=== PATIENT | female | born 1955 | race Caucasian/White ===

== ENCOUNTER 2018-08-17 19:59 | Emergency (ER) | payer OTHER, MEDICAID, SELFPAY ==
[2018-08-17 20:06] VITALS: BP 152/81; PULSE 93; RESP 18; TEMP 36.8; O2SAT 94; BMI 27.8
--- NOTE | 2018-08-17 20:25 | ED.EXTPRO ---
HPI - Extremity Problem General Chief complaint: Extremity Problem,Nontraumatic Stated complaint: LEFT FOOT BIG TOE PAIN Time Seen by Provider: 08/17/18 20:19 Source: patient Mode of arrival: ambulatory Limitations: no limitations History of Present Illness HPI Narrative: Patient is a 63-year-old female who presents with left big toe pain. She says started a week ago she has been soaking in Epsom salt. She feels like her toenail is ingrown. It has gotten more red. And painful. No fever. No numbness or tingling. No gross pus. She is not diabetic. She did not stub it or injure it. MD Complaint: extremity swelling Related Data Home Medications Medication Instructions Recorded Confirmed albuterol sulfate [Proventil HFA] 1 puff INH #0 02/07/16 Previous Rx's Medication Instructions Recorded metoprolol tartrate [Lopressor] 50 mg PO BID 30 Days #0 tab 02/07/16 pantoprazole [Protonix] 40 mg PO Q12H 7 Days #0 tab 02/07/16 sulfamethoxazole-trimethoprim 1 tab PO BID #14 tab 08/17/18 [Bactrim DS] Allergies Allergy/AdvReac Type Severity Reaction Status Date / Time penicillin G [PENICILLIN G] Allergy Unknown Unverified 06/11/17 12:40 Review of Systems Review of Systems ROS Unobtainable: All systems reviewed & are unremarkable except as noted in HPI and below Constitutional Denies chills, Denies fever(s), Denies lethargy and Denies weakness Eyes Denies change in vision, Denies eye discharge, Denies irritation and Denies loss of vision ENT Ears, Nose, Mouth, and Throat: Denies change in voice, Denies neck pain and Denies sore throat Cardiovascular Denies chest pain, Denies irregular heart rhythm, Denies lightheadedness, Denies palpitations, Denies dyspnea, Denies dyspnea on exertion and Denies orthopnea Respiratory Denies cough, Denies dyspnea, Denies dyspnea on exertion and Denies wheezing Gastrointestinal Gastrointestinal: Denies abdominal pain, Denies change in bowel habits, Denies diarrhea, Denies nausea and Denies vomiting Musculoskeletal Reports as per HPI and Denies neck pain Integumentary/Breasts Reports as per HPI Neurologic Denies loss of vision and Denies weakness Endocrine Denies palpitations Allergic/Immunologic Denies wheezing [facility] Medical History Hypertension (Acute) Social History Smoking Status: Current every day smoker Social History Smoking Status: Current every day smoker Exam Initial Vital Signs Initial Vital Signs: Vital Signs Temperature 98.2 F 08/17/18 20:06 Pulse Rate 93 H 08/17/18 20:06 Respiratory Rate 18 08/17/18 20:06 Blood Pressure 152/81 H 08/17/18 20:06 Pulse Oximetry 94 08/17/18 20:06 GENERAL: Well-appearing, well-nourished and in no acute distress. CARDIOVASCULAR: peripheral pulses in tact, cap refill <2 sec RESPIRATORY: No respiratory distress, speaks in full sentences without difficulty EXTREMITIES: Normal range of motion, no clubbing or edema. Neurovascularly intact NEUROLOGICAL: Cranial nerves II through XII grossly intact. Normal gait and speech. SKIN: Left big toe slightly erythematous no gross pus no streaking Procedures Orthopedic Splinting/Casting Injury #1: Side: left Lower Extremity Injury Location: toe Lower Extremity Immobilizer: post-op shoe Post splinting neuro exam: intact Post splinting vascular exam: intact Placed by: Nursing Course Orders Ordered: Discontinued Medications Trimethoprim/Sulfamethoxazole (Bactrim Ds Prepack) 1 bottle [facility] Stop: 08/17/18 20:25 Last Admin: 08/17/18 20:46 Dose: 1 bottle Vital Signs - 8 hr 08/17/18 20:06 08/17/18 21:06 Temperature 98.2 F Pulse Rate 93 H 54 L Respiratory Rate 18 Blood Pressure 152/81 H 139/73 Pulse Oximetry 94 95 Discharge Plan Departure Patient Disposition: Home Clinical Impression: Cellulitis of great toe Qualifiers: Laterality: left Qualified Code(s): L03.032 - Cellulitis of left toe Discharge Date/Time: 08/17/18 21:07 Interventions: ED Discharge Assessment Last Done: 08/17/18 21:06 Instructions: DI for Cellulitis -- Adult Activity Restrictions/Additional Instructions: *You have been diagnosed with left big toe cellulitis *What to do: Soak in warm soapy water 1-2 times daily. *Continue to take medications as directed Bactrim 1 tablet twice daily for 7 days *Follow up with your primary care provider in 2-3 days follow-up with Podiatry as arranged next week *Return to ER if you should have increasing redness swelling pain fever weakness numbness or any new, worsening or concerning symptoms Prescriptions: New sulfamethoxazole-trimethoprim [Bactrim DS] 800-160 mg tablet 1 tab PO BID Qty: 14 RF: 0 No Action albuterol sulfate [Proventil HFA] 90 MCG/PUFF HFA aerosol inhaler 1 puff INH Qty: 0 RF: 0 pantoprazole [Protonix] 40 MG tablet,delayed release (DR/EC) 40 mg PO Q12H 7 Days Qty: 0 RF: 0 metoprolol tartrate [Lopressor] 50 MG tablet 50 mg PO BID 30 Days Qty: 0 RF: 0
[2018-08-17] MEDS: TRIMETH/SULFA 160/800 PREPACK 1 BOTTLE MISC (20:46)
[2018-08-17 21:06] VITALS: BP 139/73; PULSE 54; O2SAT 95
== END 2018-08-17 21:07 | disposition home or self-care (01) ==
PROVIDERS: Emergency Provider Emergency Medicine
DX: L03.032 Cellulitis of left toe (principal)
CPT/HCPCS: 99282; 99283